=== PATIENT | male | born 1985 ===

== ENCOUNTER 2025-10-02 17:03 | Emergency (ER) | payer SELFPAY ==
[~2025-10-02] VITALS: Ht 190.5 cm; Wt 79.4 kg
[2025-10-02 17:06] VITALS: BP 110/61; PULSE 96; RESP 16; TEMP 98.4; O2SAT 98
== END 2025-10-02 18:03 | disposition left against medical advice (07) ==
LOC: ER 17:04
DX: R07.89 Other chest pain (principal)
CPT/HCPCS: 99281